=== PATIENT | male | born 1950 | race Hispanic/Latino ===

== ENCOUNTER 2017-12-23 16:11 | Emergency (ER) | payer BC, OTHER ==
[2017-12-23] MEDS ORDERED: ASPIRIN 325 MG TABLET ONE (17:03)
[2017-12-23 17:10] LABS: BASOPHILS % (AUTO) 0.9 % (0.0-5.0); EOSINOPHILS % (AUTO) 4.1 % (0.0-8.0); HEMATOCRIT 43.4 % (42-54); LYMPHOCYTES % (AUTO) 20.6 % (21.0-51.0); MEAN CORPUSCULAR HEMOGLOBIN 29.6 pg (27.0-33.0); MEAN CORPUSCULAR HGB CONC 34.7 g/dL (32.0-36.0); MEAN CORPUSCULAR VOLUME 85.4 fL (79-99); MONOCYTES % (AUTO) 5.4 % (3.0-13.0); NUCLEATED RED BLOOD CELLS 0.1 % (0.0-0.19); PLATELET COUNT (AUTO) 89 K/uL (130-400); RED BLOOD CELL COUNT(AUTO) 5.08 MIL/uL (4.50-6.20); RED CELL DISTRIBUTION WIDTH 14.4 % (11.0-15.5); WHITE BLOOD COUNT (AUTO) 10.5 K/uL (4.8-10.8)
[2017-12-23 18:07] LABS: INR 0.95 (0.85-1.15); PARTIAL THROMBOPLASTIN TIME 27.5 SEC (26.3-35.5)
[2017-12-23 18:08] LABS: CREATININE 1.6 mg/dL (0.5-1.5); POTASSIUM 4.5 mmol/L (3.5-5.1)
[2017-12-23] MEDS ORDERED: ONDANSETRON HCL MDV 20ML 2 MG/ML VIAL ONE (18:17)
[2017-12-23] MEDS ORDERED: MECLIZINE HCL 25 MG TABLET ONE (18:17)
[2017-12-23 18:21] LABS: ALBUMIN 3.8 g/dL (3.5-5.0); BILIRUBIN,TOTAL 0.3 mg/dL (0.2-1.0); CREATINE KINASE MB 3.2 ng/mL (0.5-3.6); TOTAL PROTEIN, SERUM 7.8 g/dL (6.0-8.3)
[2017-12-23] MEDS ORDERED: ONDANSETRON ODT 4 MG TAB ONE (18:22)
== END 2017-12-23 18:29 | disposition home or self-care (01) ==
LOC: EDH 16:11
DX: H81.399 Other peripheral vertigo, unspecified ear (principal); R11.0 Nausea; Z72.0 Tobacco use
CPT/HCPCS: 36415; 71045; 80053; 82550; 82553; 83874; 83880; 84484; 85025; 85610; 85730; 93005; 94761

== ENCOUNTER 2021-11-30 01:35 | Emergency (ER) | payer OTHER ==
[~2021-11-30] VITALS: Ht 170.2 cm; Wt 93.4 kg
[2021-11-30 02:21] LABS: APPEARANCE,URINE Cloudy (CLEAR); BILIRUBIN,URINE Negative (NEGATIVE); COLOR,URINE Orange (YELLOW); GLUCOSE, URINE (UA) >=1000 mg/dL (NEGATIVE); KETONES,URINE Negative (NEGATIVE); LEUKOCYTE ESTERASE ,URINE Small (NEGATIVE); NITRATE,URINE Negative (NEGATIVE); OCCULT BLOOD,URINE Large (NEGATIVE); PH,URINE 5.5 (5.0-8.0); PROTEIN,URINE 300 mg/dL (NEGATIVE)
[2021-11-30 02:37] LABS: BACTERIA,URINE Few /HPF (None Seen); RBC,URINE >100 /HPF (0-1); WBC,URINE 0-1 /HPF (0-1)
[2021-11-30 02:38] LABS: SQUAMOUS EPITHELIAL CELL,UR 0-2 /HPF (0-2)
[2021-11-30] MEDS ORDERED: LEVO500T90 PO (02:54)
[2021-11-30] MEDS ORDERED: LEVOFLOXACIN 500 MG TABLET PO ONE (03:00)
[2021-11-30 03:02] VITALS: BP 140/81
== END 2021-11-30 03:04 | disposition home or self-care (01) ==
LOC: EDH 01:35
DX: N39.0 Urinary tract infection, site not specified (principal); I10 Essential (primary) hypertension; E11.9 Type 2 diabetes mellitus without complications; Z91.030 Bee allergy status
CPT/HCPCS: 81001

== ENCOUNTER 2022-03-18 14:21 | Emergency (ER) | payer OTHER ==
[~2022-03-18] VITALS: Ht 170.2 cm; Wt 93.0 kg
[~2022-03-18 14:21] MED LIST: LEVO500T90 PO
[2022-03-18 14:46] LABS: BASOPHILS % (AUTO) 0.4 % (0.0-5.0); EOSINOPHILS % (AUTO) 0.6 % (0.0-8.0); HEMATOCRIT 43.6 % (42-54); LYMPHOCYTES % (AUTO) 9.5 % (21.0-51.0); MEAN CORPUSCULAR HEMOGLOBIN 28.2 pg (27.0-33.0); MEAN CORPUSCULAR VOLUME 85.5 fL (79-99); NEUTROPHILS % (AUTO) 80.8 % (40.0-77.0); PLATELET COUNT (AUTO) 298 K/uL (130-400); RED CELL DISTRIBUTION WIDTH 13.3 % (11.0-15.5); WHITE BLOOD COUNT (AUTO) 14.1 K/uL (4.8-10.8)
[2022-03-18 14:58] LABS: BILIRUBIN,TOTAL 0.3 mg/dL (0.2-1.0); CREATININE 1.9 mg/dL (0.5-1.5); TOTAL PROTEIN, SERUM 7.5 g/dL (6.0-8.3)
[2022-03-18] MEDS ORDERED: DEXTROSE 50%-WATER 50 ML DISP.SYRIN IV ONE (15:06)
[2022-03-18 17:04] VITALS: BP 141/95
[2022-03-18 18:05] LABS: INR 0.93 (0.85-1.15); PROTHROMBIN TIME 10.2 SEC (9.6-11.6)
[2022-03-18 18:06] LABS: PARTIAL THROMBOPLASTIN TIME 30.5 SEC (26.3-35.5)
== END 2022-03-18 17:48 | disposition home or self-care (01) ==
LOC: EDH 14:21
DX: R18.8 Other ascites (principal); E11.9 Type 2 diabetes mellitus without complications; I10 Essential (primary) hypertension; Z85.05 Personal history of malignant neoplasm of liver; Z90.49 Acquired absence of other specified parts of digestive tract; Z90.79 Acquired absence of other genital organ(s); Z91.030 Bee allergy status
CPT/HCPCS: 36415; 74176; 80053; 82948; 83690; 85025; 85610; 85730; 96374; 99284; J7070

== ENCOUNTER 2022-04-02 08:22 | Emergency (ER) | payer OTHER ==
[~2022-04-02] VITALS: Ht 170.2 cm; Wt 90.3 kg
[2022-04-02 08:45] LABS: BASOPHILS % (AUTO) 0.5 % (0.0-5.0); EOSINOPHILS % (AUTO) 0.5 % (0.0-8.0); HEMATOCRIT 44.5 % (42-54); LYMPHOCYTES % (AUTO) 9.1 % (21.0-51.0); MEAN CORPUSCULAR HEMOGLOBIN 27.4 pg (27.0-33.0); MEAN CORPUSCULAR HGB CONC 32.8 g/dL (32.0-36.0); MEAN CORPUSCULAR VOLUME 83.6 fL (79-99); MONOCYTES % (AUTO) 8.1 % (3.0-13.0); NEUTROPHILS % (AUTO) 80.6 % (40.0-77.0); PLATELET COUNT (AUTO) 361 K/uL (130-400); RED BLOOD CELL COUNT(AUTO) 5.32 MIL/uL (4.50-6.20); RED CELL DISTRIBUTION WIDTH 13.5 % (11.0-15.5); WHITE BLOOD COUNT (AUTO) 16.8 K/uL (4.8-10.8)
[2022-04-02 08:54] LABS: POTASSIUM 5.5 mmol/L (3.5-5.1)
[2022-04-02 08:55] LABS: CREATININE 2.3 mg/dL (0.5-1.5)
[2022-04-02 08:59] LABS: ALBUMIN 2.5 g/dL (3.5-5.0); BILIRUBIN,TOTAL 0.8 mg/dL (0.2-1.0); PROTHROMBIN TIME 10.9 SEC (9.6-11.6); TOTAL PROTEIN, SERUM 7.3 g/dL (6.0-8.3)
[2022-04-02] MEDS ORDERED: LEVOFLOXACIN 500 MG/D5W 100 ML 100 ML IV SCH (09:30)
[2022-04-02] MEDS ORDERED: ALBUMIN (HUMAN) 25% 100 ML IV STA (10:19)
[2022-04-02] MEDS ORDERED: PANTOPRAZOLE 40 MG/VIAL ONE (10:28)
[2022-04-02] MEDS ORDERED: PANTOPRAZOLE 40 MG/VIAL IVP ONE (10:30)
[2022-04-02] MEDS ORDERED: LEVO750T46 PO (11:09)
[2022-04-02 12:01] VITALS: BP 119/63
[2022-04-02 12:36] LABS: APPEARANCE,URINE CLEAR (CLEAR); BILIRUBIN,URINE NEGATIVE (NEGATIVE); COLOR,URINE YELLOW (YELLOW); GLUCOSE, URINE (UA) 250 mg/dL (NEGATIVE); KETONES,URINE 5 mg/dL (NEGATIVE); LEUKOCYTE ESTERASE ,URINE TRACE (NEGATIVE); NITRATE,URINE NEGATIVE (NEGATIVE); OCCULT BLOOD,URINE NEGATIVE (NEGATIVE); PROTEIN,URINE 100 mg/dL (NEGATIVE); UROBILINOGEN,URINE 0.2 mg/dL (0.2-1.0)
[2022-04-02 13:03] LABS: BACTERIA,URINE Rare /HPF (None Seen); RBC,URINE 0-1 /HPF (0-1); SQUAMOUS EPITHELIAL CELL,UR Rare /HPF (0-2)
[2022-04-02 13:18] LABS: SPECIMENTYPE,BODY FLUID PLEURAL
[2022-04-02 13:19] LABS: APPEARANCE BODY FLUID CLOUDY (CLEAR); BODY FLUID RBC 3525 /cu. mm.; BODY FLUID WBC 234 /cu. mm.; COLOR,BODY FLUID DARK YELLOW (LT YELLOW)
[2022-04-02 13:20] LABS: TOTAL VOLUME,BODY FLUID 5000 mL
[2022-04-02 13:57] LABS: BF LYMPHOCYTE 74 %; BF MESOTHELIAL 14 %; BF MONOCYTE 5 %
== END 2022-04-02 12:01 | disposition home or self-care (01) ==
LOC: EDH 08:22
DX: R18.8 Other ascites (principal); E11.9 Type 2 diabetes mellitus without complications; I10 Essential (primary) hypertension; Z85.05 Personal history of malignant neoplasm of liver; Z91.030 Bee allergy status
CPT/HCPCS: 36415; 49083; 76705; 80053; 81001; 85025; 85610; 87071; 87205; 89051; 96365; 96367; 96375; 99285; C1729; C9113; J1956; P9046

== ENCOUNTER 2022-04-21 09:14 | Inpatient (IN) | payer OTHER ==
[~2022-04-21] VITALS: Ht 170.2 cm; Wt 65.1 kg
[~2022-04-21 09:14] MED LIST changes: +LEVO-70 PO; -LEVO500T90 PO; +LEVO750T68 PO
[2022-04-21 09:48] LABS: BASOPHILS % (AUTO) 0.3 % (0.0-5.0); EOSINOPHILS % (AUTO) 0.1 % (0.0-8.0); HEMATOCRIT 44.5 % (42-54); LYMPHOCYTES % (AUTO) 5.8 % (21.0-51.0); MEAN CORPUSCULAR HEMOGLOBIN 27.4 pg (27.0-33.0); MEAN CORPUSCULAR HGB CONC 33.3 g/dL (32.0-36.0); MEAN CORPUSCULAR VOLUME 82.3 fL (79-99); MONOCYTES % (AUTO) 4.7 % (3.0-13.0); NEUTROPHILS % (AUTO) 87.9 % (40.0-77.0); PLATELET COUNT (AUTO) 351 K/uL (130-400); RED BLOOD CELL COUNT(AUTO) 5.41 MIL/uL (4.50-6.20); RED CELL DISTRIBUTION WIDTH 14.5 % (11.0-15.5); WHITE BLOOD COUNT (AUTO) 16.5 K/uL (4.8-10.8)
[2022-04-21] MEDS ORDERED: FAMOTIDINE 20MG VIAL IV ONE (10:00)
[2022-04-21] MEDS ORDERED: 0.9%NACL 1000ML 1,000 ML IV SCH (10:00)
[2022-04-21] MEDS ORDERED: ONDANSETRON 4MG INJ IVP ONE (10:00)
[2022-04-21 10:07] LABS: CARBON DIOXIDE 24 mmol/L (21-32); CHLORIDE 95 mmol/L (101-111); CREATININE 3.4 mg/dL (0.5-1.5); GLOMERULAR FILTR. RATE CALC 19 mL/min (>60); GLUCOSE,RANDOM 196 mg/dL (70-105); POTASSIUM 5.3 mmol/L (3.5-5.1); SODIUM SERUM 133 mmol/L (136-145)
[2022-04-21 10:11] LABS: ALANINE AMINOTRANSFERASE 25 U/L (12-78); ALBUMIN 2.6 g/dL (3.5-5.0); ASPARTATE AMINOTRANSFERASE 31 U/L (10-37); LIPASE 297 U/L (114-286); TOTAL PROTEIN, SERUM 7.5 g/dL (6.0-8.3)
[2022-04-21 10:14] LABS: UREA NITROGEN, BLOOD 115 mg/dL (7-18)
[2022-04-21 12:36] LABS: APPEARANCE,URINE CLEAR (CLEAR); BILIRUBIN,URINE SMALL (NEGATIVE); COLOR,URINE YELLOW (YELLOW); GLUCOSE, URINE (UA) 100 mg/dL (NEGATIVE); KETONES,URINE NEGATIVE (NEGATIVE); LEUKOCYTE ESTERASE ,URINE NEGATIVE (NEGATIVE); NITRATE,URINE NEGATIVE (NEGATIVE); OCCULT BLOOD,URINE NEGATIVE (NEGATIVE); PROTEIN,URINE 30 mg/dL (NEGATIVE); UROBILINOGEN,URINE 0.2 mg/dL (0.2-1.0)
[2022-04-21 12:46] LABS: BACTERIA,URINE Rare /HPF (None Seen); HYALINE CASTS, URINE 0-1 /LPF (0-1 /LPF); MUCUS,URINE Few LPF (None Seen); RBC,URINE 0-1 /HPF (0-1); SQUAMOUS EPITHELIAL CELL,UR Few /HPF (0-2)
[2022-04-21] MEDS ORDERED: ZOSYN 3.375GM+NS 50ML 50 ML IV SCH (13:00)
[2022-04-21] MEDS ORDERED: PHARMACY COMMUNICATION MISC SCH (13:00)
[2022-04-21] MEDS: 0.9%NACL 1000ML 1,000 ML IV SCH ×2 (13:48→21:00)
[2022-04-21 14:15] LABS: HEMOGLOBIN A1C 6.5 % (4.0-6.0)
[2022-04-21] MEDS ORDERED: ATOR20TA65 PO (15:12)
[2022-04-21] MEDS ORDERED: AMLO-257 PO (15:12)
[2022-04-21] MEDS ORDERED: SPIR25TA6 PO (15:12)
[2022-04-21] MEDS ORDERED: GLIP10TA9 PO (15:12)
[2022-04-21] MEDS ORDERED: EMPA25TA PO (15:12)
[2022-04-21] MEDS: ALBUMIN (HUMAN) 25% 50 ML IV SCH (16:38)
[2022-04-21 18:58] LABS: CREATININE,URINE RANDOM 169 mg/dL (30-135); SODIUM,URINE RANDOM < 14 mmol/l (40-220)
[2022-04-21] MEDS: ZOSYN 3.375GM+NS 50ML 50 ML IV SCH (21:00)
[2022-04-21 23:25] VITALS: BP 106/70
[2022-04-22 03:12] VITALS: BP 117/79
[2022-04-22] MEDS: 0.9%NACL 1000ML 1,000 ML IV SCH (03:51)
[2022-04-22 04:11] LABS: BASOPHILS % (AUTO) 0.3 % (0.0-5.0); LYMPHOCYTES % (AUTO) 10.3 % (21.0-51.0); MEAN CORPUSCULAR HGB CONC 32.8 g/dL (32.0-36.0); MEAN CORPUSCULAR VOLUME 82.5 fL (79-99); MONOCYTES % (AUTO) 7.1 % (3.0-13.0); NEUTROPHILS % (AUTO) 80.2 % (40.0-77.0); PLATELET COUNT (AUTO) 255 K/uL (130-400); RED BLOOD CELL COUNT(AUTO) 4.85 MIL/uL (4.50-6.20); RED CELL DISTRIBUTION WIDTH 14.4 % (11.0-15.5); WHITE BLOOD COUNT (AUTO) 9.4 K/uL (4.8-10.8)
[2022-04-22 04:44] LABS: ALBUMIN 2.4 g/dL (3.5-5.0); CREATININE 2.8 mg/dL (0.5-1.5); MAGNESIUM 2.8 mg/dL (1.80-2.40); POTASSIUM 4.8 mmol/L (3.5-5.1); TOTAL PROTEIN, SERUM 6.6 g/dL (6.0-8.3); URIC ACID 13.9 mg/dL (2.6-7.2)
[2022-04-22] MEDS: ONDANSETRON 4MG INJ IVP PRN (07:49)
[2022-04-22 08:00] VITALS: BP 117/73
[2022-04-22] MEDS: ZOSYN 3.375GM+NS 50ML 50 ML IV SCH ×2 (08:57→20:06)
[2022-04-22] MEDS: THIAMINE HCL 100 MG/ML 2ML VIAL IVP SCH (08:58)
[2022-04-22] MEDS: Vitamin B Complex/Vit C/Folic Acid PO SCH (08:58)
[2022-04-22] MEDS: ALBUMIN (HUMAN) 25% 50 ML IV SCH ×4 (08:59→23:40)
[2022-04-22 12:00] VITALS: BP 122/72
[2022-04-22 12:59] LABS: INR 0.98 (0.85-1.15); PROTHROMBIN TIME 10.7 SEC (9.6-11.6)
[2022-04-22 13:00] LABS: PARTIAL THROMBOPLASTIN TIME 28.3 SEC (26.3-35.5)
[2022-04-22 16:00] VITALS: BP 121/68
[2022-04-22] MEDS ORDERED: LIDOCAINE HCL 1% 10 ML VIAL ONE (16:26)
[2022-04-22 16:39] LABS: APPEARANCE BODY FLUID SLIGHTLY CLOUDY (CLEAR); COLOR,BODY FLUID DARK YELLOW (LT YELLOW); SPECIMENTYPE,BODY FLUID ASCITES
[2022-04-22 16:41] LABS: TOTAL VOLUME,BODY FLUID 1700 mL
[2022-04-22 16:42] LABS: BODY FLUID RBC 3300 /cu. mm.; BODY FLUID WBC 88 /cu. mm.
[2022-04-22 17:06] LABS: BF LYMPHOCYTE 77 %; BF MESOTHELIAL 6 %; BF MONOCYTE 5 %
[2022-04-22 19:15] VITALS: BP 114/67
[2022-04-22] MEDS: PANTOPRAZOLE 40 MG TAB DR PO SCH (20:06)
[2022-04-22] MEDS ORDERED: 0.9%NACL 1000ML 1,000 ML IV ONE (23:30)
[2022-04-23 00:15] VITALS: BP 107/69
[2022-04-23 03:15] VITALS: BP 116/66
[2022-04-23 04:20] LABS: HEMATOCRIT 39.9 % (42-54); MEAN CORPUSCULAR HEMOGLOBIN 26.9 pg (27.0-33.0); MEAN CORPUSCULAR HGB CONC 32.6 g/dL (32.0-36.0); MEAN CORPUSCULAR VOLUME 82.4 fL (79-99); RED BLOOD CELL COUNT(AUTO) 4.84 MIL/uL (4.50-6.20); RED CELL DISTRIBUTION WIDTH 14.4 % (11.0-15.5); WHITE BLOOD COUNT (AUTO) 9.3 K/uL (4.8-10.8)
[2022-04-23 04:21] LABS: CREATININE 2.7 mg/dL (0.5-1.5); POTASSIUM 3.9 mmol/L (3.5-5.1)
[2022-04-23 08:00] VITALS: BP 124/73
[2022-04-23] MEDS: Vitamin B Complex/Vit C/Folic Acid PO SCH (09:45)
[2022-04-23] MEDS: ZOSYN 3.375GM+NS 50ML 50 ML IV SCH ×2 (09:45→20:54)
[2022-04-23] MEDS: THIAMINE HCL 100 MG/ML 2ML VIAL IVP SCH (09:45)
[2022-04-23] MEDS: ALBUMIN (HUMAN) 25% 50 ML IV SCH ×2 (09:45→16:22)
[2022-04-23] MEDS: PANTOPRAZOLE 40 MG TAB DR PO SCH ×2 (09:45→20:54)
[2022-04-23 12:00] VITALS: BP 108/64
[2022-04-23 16:04] VITALS: BP 116/77
[2022-04-23] MEDS: ONDANSETRON 4MG INJ IVP PRN (16:23)
[2022-04-23 20:00] VITALS: BP 134/77
[2022-04-24] VITALS: BP 132/82
[2022-04-24] MEDS: ALBUMIN (HUMAN) 25% 50 ML IV SCH ×3 (00:11→16:20)
[2022-04-24 04:00] VITALS: BP 136/83
[2022-04-24 06:48] LABS: BASOPHILS % (AUTO) 0.2 % (0.0-5.0); EOSINOPHILS % (AUTO) 1.5 % (0.0-8.0); HEMATOCRIT 38.9 % (42-54); LYMPHOCYTES % (AUTO) 10.6 % (21.0-51.0); MEAN CORPUSCULAR HEMOGLOBIN 27.3 pg (27.0-33.0); MEAN CORPUSCULAR HGB CONC 32.9 g/dL (32.0-36.0); MEAN CORPUSCULAR VOLUME 82.9 fL (79-99); MONOCYTES % (AUTO) 7.4 % (3.0-13.0); NEUTROPHILS % (AUTO) 79.2 % (40.0-77.0); PLATELET COUNT (AUTO) 228 K/uL (130-400); RED BLOOD CELL COUNT(AUTO) 4.69 MIL/uL (4.50-6.20); RED CELL DISTRIBUTION WIDTH 14.3 % (11.0-15.5); WHITE BLOOD COUNT (AUTO) 9.3 K/uL (4.8-10.8)
[2022-04-24 06:59] LABS: CREATININE 2.4 mg/dL (0.5-1.5); POTASSIUM 3.9 mmol/L (3.5-5.1)
[2022-04-24 08:09] VITALS: BP 122/83
[2022-04-24] MEDS: ZOSYN 3.375GM+NS 50ML 50 ML IV SCH (08:17)
[2022-04-24] MEDS: Vitamin B Complex/Vit C/Folic Acid PO SCH (08:17)
[2022-04-24] MEDS: PANTOPRAZOLE 40 MG TAB DR PO SCH ×2 (08:18→20:10)
[2022-04-24] MEDS: ONDANSETRON 4MG INJ IVP PRN ×2 (08:18→16:20)
[2022-04-24] MEDS: THIAMINE HCL 100 MG/ML 2ML VIAL IVP SCH (08:18)
[2022-04-24] MEDS ORDERED: ENOXAPARIN SODIUM 40 MG/0.4 ML SYRINGE SQ SCH (09:00)
[2022-04-24] MEDS ORDERED: GLYCERIN ADULT SUPP.RECT RC SCH (10:30)
[2022-04-24] MEDS: HEPARIN 5,000 UNIT VIAL SQ SCH ×2 (11:36→20:13)
[2022-04-24 12:00] VITALS: BP 106/74
[2022-04-24 16:00] VITALS: BP 104/90
[2022-04-24 20:00] VITALS: BP 111/68
[2022-04-24] MEDS: PROMETHAZINE HCL 25 MG/ML 1ML AMPULE IM PRN (20:10)
[2022-04-25] VITALS (7 sets, daily range): BP systolic 106–127; BP diastolic 64–84
[2022-04-25] MEDS: ALBUMIN (HUMAN) 25% 50 ML IV SCH ×3 (01:11→15:20)
[2022-04-25] MEDS: PROMETHAZINE HCL 25 MG/ML 1ML AMPULE IM PRN ×2 (03:25→19:51)
[2022-04-25 03:59] LABS: HEMATOCRIT 40.2 % (42-54); MEAN CORPUSCULAR HEMOGLOBIN 27.1 pg (27.0-33.0); MEAN CORPUSCULAR HGB CONC 32.6 g/dL (32.0-36.0); MEAN CORPUSCULAR VOLUME 83.1 fL (79-99); RED BLOOD CELL COUNT(AUTO) 4.84 MIL/uL (4.50-6.20); RED CELL DISTRIBUTION WIDTH 14.2 % (11.0-15.5); WHITE BLOOD COUNT (AUTO) 10.2 K/uL (4.8-10.8)
[2022-04-25 04:11] LABS: CREATININE 2.5 mg/dL (0.5-1.5); POTASSIUM 3.7 mmol/L (3.5-5.1)
[2022-04-25] MEDS: THIAMINE HCL 100 MG/ML 2ML VIAL IVP SCH (09:02)
[2022-04-25] MEDS: Vitamin B Complex/Vit C/Folic Acid PO SCH (09:02)
[2022-04-25] MEDS: PANTOPRAZOLE 40 MG TAB DR PO SCH ×2 (09:03→19:51)
[2022-04-25] MEDS: HEPARIN 5,000 UNIT VIAL SQ SCH ×2 (10:38→22:10)
[2022-04-25] MEDS ORDERED: LACTULOSE 20 GM/30 ML UDCUP PO PRN ×2 (16:30→17:00)
[2022-04-25] MEDS: ONDANSETRON 4MG INJ IVP PRN (22:10)
[2022-04-26 00:09] VITALS: BP 104/67
[2022-04-26] MEDS: ALBUMIN (HUMAN) 25% 50 ML IV SCH (00:57)
[2022-04-26 03:09] VITALS: BP 109/63
[2022-04-26] MEDS: PROMETHAZINE HCL 25 MG/ML 1ML AMPULE IM PRN (03:18)
[2022-04-26 04:00] LABS: HEMATOCRIT 41.6 % (42-54); MEAN CORPUSCULAR HGB CONC 32.7 g/dL (32.0-36.0); MEAN CORPUSCULAR VOLUME 82.7 fL (79-99); RED BLOOD CELL COUNT(AUTO) 5.03 MIL/uL (4.50-6.20); RED CELL DISTRIBUTION WIDTH 14.4 % (11.0-15.5); WHITE BLOOD COUNT (AUTO) 12.4 K/uL (4.8-10.8)
[2022-04-26 04:09] LABS: CREATININE 3.2 mg/dL (0.5-1.5)
[2022-04-26] MEDS ORDERED: METOPROLOL TARTRATE 1 MG/ML 5ML VIAL IV ONE (04:11)
[2022-04-26 08:00] VITALS: BP 102/64
[2022-04-26] MEDS: PANTOPRAZOLE 40 MG TAB DR PO SCH (09:00)
[2022-04-26] MEDS: Vitamin B Complex/Vit C/Folic Acid PO SCH (09:00)
[2022-04-26] MEDS: THIAMINE HCL 100 MG/ML 2ML VIAL IVP SCH (09:42)
[2022-04-26] MEDS: HEPARIN 5,000 UNIT VIAL SQ SCH ×2 (09:43→20:51)
[2022-04-26 11:54] VITALS: BP 102/69
[2022-04-26 16:00] VITALS: BP 95/67
[2022-04-26 19:15] VITALS: BP 107/68
[2022-04-26] MEDS: ONDANSETRON 4MG INJ IVP PRN (20:50)
[2022-04-26] MEDS: PANTOPRAZOLE 40 MG/VIAL IVP SCH (20:50)
[2022-04-27 00:15] VITALS: BP 91/61
[2022-04-27] MEDS: 0.9%NACL 1000ML 1,000 ML IV SCH ×2 (02:50→13:54)
[2022-04-27 04:00] VITALS: BP 109/66
[2022-04-27 04:28] LABS: HEMATOCRIT 39.1 % (42-54); MEAN CORPUSCULAR HEMOGLOBIN 26.6 pg (27.0-33.0); MEAN CORPUSCULAR HGB CONC 31.7 g/dL (32.0-36.0); MEAN CORPUSCULAR VOLUME 83.7 fL (79-99); RED BLOOD CELL COUNT(AUTO) 4.67 MIL/uL (4.50-6.20); RED CELL DISTRIBUTION WIDTH 14.6 % (11.0-15.5); WHITE BLOOD COUNT (AUTO) 11.2 K/uL (4.8-10.8)
[2022-04-27 04:37] LABS: CREATININE 5.2 mg/dL (0.5-1.5); POTASSIUM 3.9 mmol/L (3.5-5.1)
[2022-04-27 07:49] VITALS: BP_SYST 101; BP_SYST 137; BP_DIAS 61; BP_DIAS 74
[2022-04-27] MEDS: ONDANSETRON 4MG INJ IVP PRN ×2 (08:23→15:11)
[2022-04-27] MEDS: THIAMINE HCL 100 MG/ML 2ML VIAL IVP SCH (08:23)
[2022-04-27] MEDS: PANTOPRAZOLE 40 MG/VIAL IVP SCH ×2 (08:23→23:13)
[2022-04-27] MEDS: Vitamin B Complex/Vit C/Folic Acid PO SCH (08:23)
[2022-04-27 11:31] VITALS: BP 109/62
[2022-04-27] MEDS: HEPARIN 5,000 UNIT VIAL SQ SCH ×2 (11:38→23:16)
[2022-04-27] MEDS ORDERED: 0.9% NACL 500ML IV.SOLN 500 ML IV SCH (13:00)
[2022-04-27] MEDS ORDERED: PHARMACY COMMUNICATION MISC SCH (13:00)
[2022-04-27] MEDS: ALBUMIN (HUMAN) 25% 100 ML IV SCH ×2 (13:54→23:14)
[2022-04-27 14:33] LABS: APPEARANCE,URINE CLOUDY (CLEAR); BILIRUBIN,URINE SMALL (NEGATIVE); COLOR,URINE BROWN (YELLOW); GLUCOSE, URINE (UA) NEGATIVE (NEGATIVE); KETONES,URINE NEGATIVE (NEGATIVE); LEUKOCYTE ESTERASE ,URINE NEGATIVE (NEGATIVE); NITRATE,URINE NEGATIVE (NEGATIVE); OCCULT BLOOD,URINE LARGE (NEGATIVE); PROTEIN,URINE 30 mg/dL (NEGATIVE); UROBILINOGEN,URINE 0.2 mg/dL (0.2-1.0)
[2022-04-27 15:02] LABS: BACTERIA,URINE Few /HPF (None Seen); MUCUS,URINE Few LPF (None Seen); RBC,URINE 51-100 /HPF (0-1); SQUAMOUS EPITHELIAL CELL,UR Few /HPF (0-2); YEAST,URINE BUDDING Moderate /HPF (None Seen)
[2022-04-27 16:10] VITALS: BP 119/83
[2022-04-27 19:15] VITALS: BP 113/68
[2022-04-28] VITALS (7 sets, daily range): BP systolic 108–121; BP diastolic 57–73
[2022-04-28 04:30] LABS: BASOPHILS % (AUTO) 0.4 % (0.0-5.0); EOSINOPHILS % (AUTO) 0.4 % (0.0-8.0); HEMATOCRIT 34.1 % (42-54); LYMPHOCYTES % (AUTO) 7.2 % (21.0-51.0); MEAN CORPUSCULAR HEMOGLOBIN 26.8 pg (27.0-33.0); MEAN CORPUSCULAR VOLUME 83.8 fL (79-99); MONOCYTES % (AUTO) 7.9 % (3.0-13.0); NEUTROPHILS % (AUTO) 83.2 % (40.0-77.0); PLATELET COUNT (AUTO) 203 K/uL (130-400); RED BLOOD CELL COUNT(AUTO) 4.07 MIL/uL (4.50-6.20); RED CELL DISTRIBUTION WIDTH 14.4 % (11.0-15.5); WHITE BLOOD COUNT (AUTO) 9.9 K/uL (4.8-10.8)
[2022-04-28 04:50] LABS: ALBUMIN 3.2 g/dL (3.5-5.0); CREATININE 4.5 mg/dL (0.5-1.5); MAGNESIUM 2.8 mg/dL (1.80-2.40); PHOSPHORUS 4.3 mg/dL (2.5-4.9); POTASSIUM 3.2 mmol/L (3.5-5.1); TOTAL PROTEIN, SERUM 6.8 g/dL (6.0-8.3)
[2022-04-28] MEDS: 0.9%NACL 1000ML 1,000 ML IV SCH ×2 (05:18→17:04)
[2022-04-28] MEDS: ALBUMIN (HUMAN) 25% 100 ML IV SCH ×3 (05:18→22:33)
[2022-04-28] MEDS: THIAMINE HCL 100 MG/ML 2ML VIAL IVP SCH (08:07)
[2022-04-28] MEDS: PANTOPRAZOLE 40 MG/VIAL IVP SCH ×2 (08:07→22:24)
[2022-04-28] MEDS: Vitamin B Complex/Vit C/Folic Acid PO SCH (08:08)
[2022-04-28] MEDS: HEPARIN 5,000 UNIT VIAL SQ SCH ×2 (10:41→22:40)
[2022-04-28] MEDS ORDERED: DIATR MEGLU/DIATRIZOATE SODIUM 30 ML BOTTLE ONE (10:57)
[2022-04-29] VITALS: BP 111/51
[2022-04-29 04:00] VITALS: BP 118/67
[2022-04-29 05:06] LABS: HEMATOCRIT 33.3 % (42-54); MEAN CORPUSCULAR HGB CONC 32.1 g/dL (32.0-36.0); MEAN CORPUSCULAR VOLUME 84.1 fL (79-99); RED BLOOD CELL COUNT(AUTO) 3.96 MIL/uL (4.50-6.20); RED CELL DISTRIBUTION WIDTH 14.4 % (11.0-15.5); WHITE BLOOD COUNT (AUTO) 12.2 K/uL (4.8-10.8)
[2022-04-29 05:19] LABS: PROTHROMBIN TIME 10.9 SEC (9.6-11.6)
[2022-04-29 05:20] LABS: PARTIAL THROMBOPLASTIN TIME 32.5 SEC (26.3-35.5)
[2022-04-29 05:25] LABS: ALBUMIN 3.4 g/dL (3.5-5.0); CREATININE 3.7 mg/dL (0.5-1.5); MAGNESIUM 2.6 mg/dL (1.80-2.40); PHOSPHORUS 3.7 mg/dL (2.5-4.9); TOTAL PROTEIN, SERUM 6.8 g/dL (6.0-8.3)
[2022-04-29] MEDS: ALBUMIN (HUMAN) 25% 100 ML IV SCH (05:26)
[2022-04-29 05:54] LABS: POTASSIUM 2.9 mmol/L (3.5-5.1)
[2022-04-29 08:00] VITALS: BP 126/61
[2022-04-29] MEDS: 0.9%NACL 1000ML 1,000 ML IV SCH ×2 (10:34→13:10)
[2022-04-29] MEDS: Vitamin B Complex/Vit C/Folic Acid PO SCH (10:34)
[2022-04-29] MEDS: THIAMINE HCL 100 MG/ML 2ML VIAL IVP SCH (10:34)
[2022-04-29] MEDS: HEPARIN 5,000 UNIT VIAL SQ SCH ×2 (10:35→21:49)
[2022-04-29] MEDS: PANTOPRAZOLE 40 MG/VIAL IVP SCH ×2 (10:36→21:44)
[2022-04-29 12:00] VITALS: BP 122/69
[2022-04-29] MEDS: POTASSIUM CHLORIDE 20MEQ/10ML 20 MEQ in DEXTROSE 5 %-0.45 % NACL 1,000 ML IV SCH (13:43)
[2022-04-29 16:00] VITALS: BP 121/64
[2022-04-29 18:10] LABS: CREATININE 3.2 mg/dL (0.5-1.5); POTASSIUM 3.2 mmol/L (3.5-5.1)
[2022-04-29 20:00] VITALS: BP 108/62
[2022-04-29] MEDS: ONDANSETRON 4MG INJ IVP PRN (21:44)
[2022-04-30] VITALS (28 sets, daily range): BP systolic 107–129; BP diastolic 60–77
[2022-04-30 06:17] LABS: BASOPHILS % (AUTO) 0.4 % (0.0-5.0); EOSINOPHILS % (AUTO) 0.1 % (0.0-8.0); HEMATOCRIT 34.7 % (42-54); LYMPHOCYTES % (AUTO) 7.4 % (21.0-51.0); MEAN CORPUSCULAR HEMOGLOBIN 27.3 pg (27.0-33.0); MEAN CORPUSCULAR VOLUME 85.3 fL (79-99); MONOCYTES % (AUTO) 7.4 % (3.0-13.0); NEUTROPHILS % (AUTO) 82.5 % (40.0-77.0); PLATELET COUNT (AUTO) 206 K/uL (130-400); RED BLOOD CELL COUNT(AUTO) 4.07 MIL/uL (4.50-6.20); RED CELL DISTRIBUTION WIDTH 14.6 % (11.0-15.5); WHITE BLOOD COUNT (AUTO) 13.1 K/uL (4.8-10.8)
[2022-04-30 06:36] LABS: ALBUMIN 3.3 g/dL (3.5-5.0); MAGNESIUM 2.4 mg/dL (1.80-2.40); PHOSPHORUS 3.2 mg/dL (2.5-4.9)
[2022-04-30 06:44] LABS: POTASSIUM 2.9 mmol/L (3.5-5.1)
[2022-04-30] MEDS: Vitamin B Complex/Vit C/Folic Acid PO SCH (09:00)
[2022-04-30] MEDS: PANTOPRAZOLE 40 MG/VIAL IVP SCH ×2 (10:03→20:57)
[2022-04-30] MEDS: THIAMINE HCL 100 MG/ML 2ML VIAL IVP SCH (10:03)
[2022-04-30] MEDS: HEPARIN 5,000 UNIT VIAL SQ SCH ×2 (10:30→22:30)
[2022-04-30] MEDS: 0.9%NACL 1000ML 1,000 ML IV SCH (10:50)
[2022-04-30] MEDS ORDERED: CEFAZOLIN SODIUM 1 GM VIAL ONE (13:27)
[2022-04-30] MEDS ORDERED: CEFAZOLIN SODIUM 1 GM VIAL IVP SCH (14:00)
[2022-04-30] MEDS ORDERED: DEXAMETHASONE SOD PHOSPHATE 10MG/ML 1ML VIAL ONE (14:22)
[2022-04-30] MEDS ORDERED: SUCCINYLCHOLINE 200MG/10ML SYR ONE (14:22)
[2022-04-30] MEDS ORDERED: LIDOCAINE PF 100MG/5ML (2%) SYRINGE 5ML ONE (14:22)
[2022-04-30] MEDS ORDERED: GLYCOPYRROLATE 1 MG/5 ML SYRINGE ONE (14:23)
[2022-04-30] MEDS ORDERED: PROPOFOL 10 MG/ML 20ML VIAL IV ONE (14:23)
[2022-04-30] MEDS ORDERED: ROCURONIUM 10MG/1ML SYR 10 MG/ML ML ONE (14:23)
[2022-04-30] MEDS ORDERED: NEOSTIGMINE 5MG/5ML SYR IV ONE (14:23)
[2022-04-30] MEDS ORDERED: MIDAZOLAM HCL 1 MG/ML 2ML VIAL ONE (14:23)
[2022-04-30 14:30] LABS: CREATININE 2.9 mg/dL (0.5-1.5); POTASSIUM 3.1 mmol/L (3.5-5.1)
[2022-04-30] MEDS ORDERED: FENTANYL CITRATE PF 50 MCG/1 ML 2ML VIAL ONE (14:34)
[2022-04-30] MEDS ORDERED: PHENYLEPHRINE HCL 10 MG/ML 1ML VIAL IV ONE (14:35)
[2022-04-30] MEDS ORDERED: CEFAZOLIN SODIUM 2 GM VIAL IV ONE (15:00)
[2022-04-30] MEDS ORDERED: BUPIVACAINE/PF 0.5% 30ML VIAL ONE (15:06)
[2022-04-30] MEDS ORDERED: ESMOLOL HCL 10 MG/ML 10 ML VIAL ONE (15:32)
[2022-04-30] MEDS ORDERED: SUGAMMADEX SODIUM 200 MG/2 ML VIAL IV ONE (15:34)
[2022-04-30 17:02] LABS: HEMATOCRIT 25.3 % (42-54); MEAN CORPUSCULAR HEMOGLOBIN 27.6 pg (27.0-33.0); MEAN CORPUSCULAR HGB CONC 31.2 g/dL (32.0-36.0); MEAN CORPUSCULAR VOLUME 88.5 fL (79-99); PLATELET COUNT (AUTO) 142 K/uL (130-400); RED BLOOD CELL COUNT(AUTO) 2.86 MIL/uL (4.50-6.20); RED CELL DISTRIBUTION WIDTH 14.8 % (11.0-15.5); WHITE BLOOD COUNT (AUTO) 9.7 K/uL (4.8-10.8)
[2022-04-30] MEDS: POTASSIUM CHLORIDE 20MEQ/10ML 20 MEQ in DEXTROSE 5 %-0.45 % NACL 1,000 ML IV SCH (17:06)
[2022-04-30 17:32] LABS: BAND NEUTROPHILS % (MANUAL) 25 % (0-2); LYMPHOCYTES % (MANUAL) 4 % (22-44); MONOCYTES % (MANUAL) 4 % (2-9); REACTIVE LYMPHOCYTES 1 % (0-0); SEGMENTED NEUTROPHILS % 66 % (40-70)
[2022-04-30 17:33] LABS: MAN.DIFF COMMENT-IMPRESSION MANUAL DIFFERENTIAL
[2022-05-01 04:08] VITALS: BP 123/74
[2022-05-01 05:29] LABS: BASOPHILS % (AUTO) 0.4 % (0.0-5.0); EOSINOPHILS % (AUTO) 0.1 % (0.0-8.0); HEMATOCRIT 35.4 % (42-54); MEAN CORPUSCULAR HGB CONC 31.1 g/dL (32.0-36.0); MONOCYTES % (AUTO) 7.8 % (3.0-13.0); NEUTROPHILS % (AUTO) 81.7 % (40.0-77.0); PLATELET COUNT (AUTO) 209 K/uL (130-400); RED BLOOD CELL COUNT(AUTO) 4.07 MIL/uL (4.50-6.20); WHITE BLOOD COUNT (AUTO) 10.9 K/uL (4.8-10.8)
[2022-05-01 05:42] LABS: ALBUMIN 2.8 g/dL (3.5-5.0); CREATININE 2.8 mg/dL (0.5-1.5); TOTAL PROTEIN, SERUM 6.7 g/dL (6.0-8.3)
[2022-05-01 05:47] LABS: POTASSIUM 2.7 mmol/L (3.5-5.1)
[2022-05-01 07:01] VITALS: BP 119/76
[2022-05-01] MEDS: Vitamin B Complex/Vit C/Folic Acid PO SCH (09:00)
[2022-05-01] MEDS: THIAMINE HCL 100 MG/ML 2ML VIAL IVP SCH (09:24)
[2022-05-01] MEDS: PANTOPRAZOLE 40 MG/VIAL IVP SCH ×2 (09:24→20:09)
[2022-05-01] MEDS: 0.9%NACL 1000ML 1,000 ML IV SCH ×2 (10:41→12:12)
[2022-05-01] MEDS: HEPARIN 5,000 UNIT VIAL SQ SCH ×2 (10:43→23:00)
[2022-05-01] MEDS: POTASSIUM CHLORIDE 20MEQ/10ML 20 MEQ in DEXTROSE 5%-WATER 1,000 ML IV SCH (12:10)
[2022-05-01 12:19] VITALS: BP 133/81
[2022-05-01 16:14] VITALS: BP 117/75
[2022-05-01] MEDS ORDERED: DEXTROSE 50%-WATER 50 ML DISP.SYRIN IV PRN (18:30)
[2022-05-01] MEDS ORDERED: GLUCAGON 1MG KIT 1 MG ML IM PRN (18:30)
[2022-05-01 20:00] VITALS: BP 126/77
[2022-05-01] MEDS: ONDANSETRON 4MG INJ IVP PRN (20:27)
[2022-05-01] MEDS: INSULIN HUMULIN R 100 UNIT/ML 3ML SQ SCH (23:07)
[2022-05-02 00:35] VITALS: BP 116/71
[2022-05-02] MEDS: POTASSIUM CHLORIDE 20MEQ/10ML 20 MEQ in DEXTROSE 5%-WATER 1,000 ML IV SCH ×2 (01:25→15:47)
[2022-05-02] MEDS: 0.9%NACL 1000ML 1,000 ML IV SCH (01:25)
[2022-05-02 04:00] VITALS: BP 120/71
[2022-05-02 04:35] LABS: BASOPHILS % (AUTO) 0.4 % (0.0-5.0); HEMATOCRIT 36.1 % (42-54); LYMPHOCYTES % (AUTO) 8.1 % (21.0-51.0); MEAN CORPUSCULAR HEMOGLOBIN 26.9 pg (27.0-33.0); MEAN CORPUSCULAR HGB CONC 30.7 g/dL (32.0-36.0); MEAN CORPUSCULAR VOLUME 87.4 fL (79-99); MONOCYTES % (AUTO) 7.5 % (3.0-13.0); NEUTROPHILS % (AUTO) 80.9 % (40.0-77.0); PLATELET COUNT (AUTO) 190 K/uL (130-400); RED BLOOD CELL COUNT(AUTO) 4.13 MIL/uL (4.50-6.20); WHITE BLOOD COUNT (AUTO) 10.8 K/uL (4.8-10.8)
[2022-05-02 05:03] LABS: ALBUMIN 2.5 g/dL (3.5-5.0); CREATININE 2.6 mg/dL (0.5-1.5); MAGNESIUM 2.3 mg/dL (1.80-2.40); TOTAL PROTEIN, SERUM 6.6 g/dL (6.0-8.3)
[2022-05-02 05:11] LABS: POTASSIUM 2.9 mmol/L (3.5-5.1)
[2022-05-02] MEDS: INSULIN HUMULIN R 100 UNIT/ML 3ML SQ SCH ×3 (06:19→19:06)
[2022-05-02 08:00] VITALS: BP 120/65
[2022-05-02] MEDS: Vitamin B Complex/Vit C/Folic Acid PO SCH (09:00)
[2022-05-02] MEDS: PANTOPRAZOLE 40 MG/VIAL IVP SCH ×2 (09:50→21:47)
[2022-05-02] MEDS: THIAMINE HCL 100 MG/ML 2ML VIAL IVP SCH (09:51)
[2022-05-02] MEDS: HEPARIN 5,000 UNIT VIAL SQ SCH ×2 (10:04→21:53)
[2022-05-02 12:00] VITALS: BP 122/80
[2022-05-02 16:00] VITALS: BP 110/57
[2022-05-02] MEDS: POTASSIUM CHLORIDE 20MEQ/100ML 100 ML IV PRN ×2 (16:50→21:48)
[2022-05-02] MEDS: LIDOCAINE HCL-MPF 1% 2ML VIAL IV PRN ×2 (16:50→21:49)
[2022-05-02] MEDS ORDERED: M.V.I. IV [ADULT] 10 ML, MULTITRACE-4 ADULT 10ML VIAL 3 ML in CLINIMIX-E 5%AA /D15%W 2... IV SCH (17:00)
[2022-05-02 17:15] LABS: INR 0.97 (0.85-1.15); PROTHROMBIN TIME 10.6 SEC (9.6-11.6)
[2022-05-02 20:00] VITALS: BP 121/80
[2022-05-02] MEDS: FAT EMULSIONS 20% 250ML 250 ML IV SCH (23:25)
[2022-05-03] VITALS: BP 112/67
[2022-05-03] MEDS: INSULIN HUMULIN R 100 UNIT/ML 3ML SQ SCH ×4 (00:26→18:21)
[2022-05-03] MEDS: 0.9%NACL 1000ML 1,000 ML IV SCH ×2 (02:06→18:50)
[2022-05-03 04:00] VITALS: BP 109/68
[2022-05-03 05:36] LABS: HEMATOCRIT 35.9 % (42-54); MEAN CORPUSCULAR HEMOGLOBIN 27.5 pg (27.0-33.0); MEAN CORPUSCULAR HGB CONC 31.2 g/dL (32.0-36.0); MEAN CORPUSCULAR VOLUME 88.2 fL (79-99); NUCLEATED RED BLOOD CELLS 0.1 % (0.0-0.19); PLATELET COUNT (AUTO) 214 K/uL (130-400); RED BLOOD CELL COUNT(AUTO) 4.07 MIL/uL (4.50-6.20); RED CELL DISTRIBUTION WIDTH 15.4 % (11.0-15.5); WHITE BLOOD COUNT (AUTO) 13.8 K/uL (4.8-10.8)
[2022-05-03 05:54] LABS: ALBUMIN 2.3 g/dL (3.5-5.0); CREATININE 2.6 mg/dL (0.5-1.5); MAGNESIUM 2.2 mg/dL (1.80-2.40); POTASSIUM 3.9 mmol/L (3.5-5.1)
[2022-05-03 05:58] LABS: BAND NEUTROPHILS % (MANUAL) 17 % (0-2); LYMPHOCYTES % (MANUAL) 7 % (22-44); MONOCYTES % (MANUAL) 3 % (2-9); SEGMENTED NEUTROPHILS % 73 % (40-70)
[2022-05-03 06:00] LABS: MAN.DIFF COMMENT-IMPRESSION MANUAL DIFFERENTIAL
[2022-05-03 06:11] LABS: TOTAL PROTEIN, SERUM 6.8 g/dL (6.0-8.3)
[2022-05-03 08:00] VITALS: BP 127/60
[2022-05-03] MEDS: Vitamin B Complex/Vit C/Folic Acid PO SCH (09:00)
[2022-05-03] MEDS: 0.9%NACL 10ML VIAL IV SCH ×2 (09:00→21:02)
[2022-05-03] MEDS: PANTOPRAZOLE 40 MG/VIAL IVP SCH ×2 (09:58→10:11)
[2022-05-03] MEDS: HEPARIN 5,000 UNIT VIAL SQ SCH ×2 (10:09→21:02)
[2022-05-03] MEDS: THIAMINE HCL 100 MG/ML 2ML VIAL IVP SCH (10:11)
[2022-05-03 12:00] VITALS: BP 121/72
[2022-05-03 16:00] VITALS: BP 119/54
[2022-05-03] MEDS ORDERED: [UNRECOGNIZED DRUG - NUTRITION] IV ONE (16:00)
[2022-05-03] MEDS: METOPROLOL TARTRATE 1 MG/ML 5ML VIAL IV PRN ×2 (19:36→21:01)
[2022-05-03 20:00] VITALS: BP 96/76
[2022-05-04] VITALS: BP 157/96
[2022-05-04] MEDS: INSULIN HUMULIN R 100 UNIT/ML 3ML SQ SCH ×4 (00:55→18:29)
[2022-05-04 04:00] VITALS: BP 136/66
[2022-05-04 04:35] LABS: BASOPHILS % (AUTO) 0.4 % (0.0-5.0); EOSINOPHILS % (AUTO) 0.2 % (0.0-8.0); HEMATOCRIT 33.4 % (42-54); LYMPHOCYTES % (AUTO) 8.6 % (21.0-51.0); MEAN CORPUSCULAR HEMOGLOBIN 26.8 pg (27.0-33.0); MEAN CORPUSCULAR HGB CONC 30.8 g/dL (32.0-36.0); NEUTROPHILS % (AUTO) 84.1 % (40.0-77.0); NUCLEATED RED BLOOD CELLS 0.2 % (0.0-0.19); PLATELET COUNT (AUTO) 167 K/uL (130-400); RED BLOOD CELL COUNT(AUTO) 3.84 MIL/uL (4.50-6.20); RED CELL DISTRIBUTION WIDTH 15.6 % (11.0-15.5); WHITE BLOOD COUNT (AUTO) 12.7 K/uL (4.8-10.8)
[2022-05-04 04:55] LABS: CREATININE 3.2 mg/dL (0.5-1.5); POTASSIUM 3.9 mmol/L (3.5-5.1)
[2022-05-04 08:00] VITALS: BP 137/42
[2022-05-04] MEDS: Vitamin B Complex/Vit C/Folic Acid PO SCH (09:00)
[2022-05-04] MEDS: THIAMINE HCL 100 MG/ML 2ML VIAL IVP SCH (09:00)
[2022-05-04] MEDS: 0.9%NACL 10ML VIAL IV SCH ×2 (09:07→19:56)
[2022-05-04] MEDS: HEPARIN 5,000 UNIT VIAL SQ SCH ×2 (09:13→23:50)
[2022-05-04] MEDS: PANTOPRAZOLE 40 MG/VIAL IVP SCH ×2 (09:13→19:56)
[2022-05-04 12:00] VITALS: BP 140/58
[2022-05-04] MEDS: DEXTROSE 5%-WATER 1,000 ML IV SCH (13:01)
[2022-05-04 16:00] VITALS: BP 136/97
[2022-05-04 20:00] VITALS: BP 108/65
[2022-05-04] MEDS ORDERED: [UNRECOGNIZED DRUG - NUTRITION] IV ONE (20:00)
[2022-05-05] VITALS: BP 112/73
[2022-05-05] MEDS: INSULIN HUMULIN R 100 UNIT/ML 3ML SQ SCH ×4 (01:44→18:43)
[2022-05-05] MEDS ORDERED: INSULIN HUMULIN R 100 UNIT/ML 3ML IV ONE (03:35)
[2022-05-05 04:00] VITALS: BP 105/55
[2022-05-05 07:30] VITALS: BP 98/59
[2022-05-05 08:30] LABS: CREATININE 3.1 mg/dL (0.5-1.5); POTASSIUM 3.4 mmol/L (3.5-5.1)
[2022-05-05] MEDS: Vitamin B Complex/Vit C/Folic Acid PO SCH (09:00)
[2022-05-05 09:17] LABS: MAGNESIUM 2.4 mg/dL (1.80-2.40)
[2022-05-05] MEDS: PANTOPRAZOLE 40 MG/VIAL IVP SCH ×2 (09:17→20:32)
[2022-05-05] MEDS: THIAMINE HCL 100 MG/ML 2ML VIAL IVP SCH (09:17)
[2022-05-05] MEDS: DEXTROSE 5%-WATER 1,000 ML IV SCH ×2 (09:47→16:31)
[2022-05-05] MEDS: 0.9%NACL 10ML VIAL IV SCH ×2 (09:47→20:32)
[2022-05-05] MEDS: FAT EMULSIONS 20% 250ML 250 ML IV SCH (11:17)
[2022-05-05] MEDS: HEPARIN 5,000 UNIT VIAL SQ SCH ×2 (11:21→22:35)
[2022-05-05 11:30] VITALS: BP 109/62
[2022-05-05] MEDS: CEFEPIME HCL 1 GM VIAL IVP SCH (12:25)
[2022-05-05] MEDS: LINEZOLID 600 MG/ISO-OSM 300 ML IV SCH (12:25)
[2022-05-05] MEDS ORDERED: INSULIN GLARGINE 100 UNITS/ML 10 ML VIAL SQ ONE (12:30)
[2022-05-05 13:18] LABS: CHOLESTEROL 98 mg/dL (<200); HDL CHOLESTEROL 30 mg/dL (29-71); LDL DIRECT 47 mg/dL (0-99); TRIGLYCERIDES 151 mg/dL (30-200)
[2022-05-05 15:30] VITALS: BP 111/58
[2022-05-05] MEDS ORDERED: M.V.I. IV [ADULT] 10 ML in CLINIMIX-E 5%AA /D15%W 2000ML 2,000 ML IV SCH (19:00)
[2022-05-05 20:00] VITALS: BP 109/63
[2022-05-05] MEDS ORDERED: INSULIN GLARGINE 100 UNITS/ML 10 ML VIAL SQ SCH (21:00)
[2022-05-05] MEDS ORDERED: BISACODYL 10 MG SUPP.RECT RC ONE (21:00)
[2022-05-05] MEDS: ONDANSETRON 4MG INJ IVP PRN (22:07)
[2022-05-06] VITALS: BP 100/55
[2022-05-06] MEDS: LINEZOLID 600 MG/ISO-OSM 300 ML IV SCH ×2 (00:10→11:33)
[2022-05-06] MEDS: CEFEPIME HCL 1 GM VIAL IVP SCH ×2 (00:11→11:33)
[2022-05-06] MEDS: INSULIN HUMULIN R 100 UNIT/ML 3ML SQ SCH ×4 (01:08→18:51)
[2022-05-06 04:00] VITALS: BP 101/53
[2022-05-06 05:42] LABS: BASOPHILS % (AUTO) 0.2 % (0.0-5.0); EOSINOPHILS % (AUTO) 0.5 % (0.0-8.0); HEMATOCRIT 30.8 % (42-54); LYMPHOCYTES % (AUTO) 9.9 % (21.0-51.0); MEAN CORPUSCULAR HEMOGLOBIN 26.8 pg (27.0-33.0); MEAN CORPUSCULAR HGB CONC 31.2 g/dL (32.0-36.0); MONOCYTES % (AUTO) 4.9 % (3.0-13.0); NEUTROPHILS % (AUTO) 82.5 % (40.0-77.0); PLATELET COUNT (AUTO) 165 K/uL (130-400); RED BLOOD CELL COUNT(AUTO) 3.58 MIL/uL (4.50-6.20); RED CELL DISTRIBUTION WIDTH 15.4 % (11.0-15.5); WHITE BLOOD COUNT (AUTO) 9.6 K/uL (4.8-10.8)
[2022-05-06 06:08] LABS: CREATININE 3.1 mg/dL (0.5-1.5); MAGNESIUM 2.3 mg/dL (1.80-2.40); PHOSPHORUS 4.3 mg/dL (2.5-4.9); POTASSIUM 3.7 mmol/L (3.5-5.1)
[2022-05-06 07:20] VITALS: BP 95/54
[2022-05-06] MEDS: PANTOPRAZOLE 40 MG/VIAL IVP SCH ×2 (09:04→21:41)
[2022-05-06] MEDS: Vitamin B Complex/Vit C/Folic Acid PO SCH (09:04)
[2022-05-06] MEDS: 0.9%NACL 10ML VIAL IV SCH ×2 (09:04→21:41)
[2022-05-06] MEDS: THIAMINE HCL 100 MG/ML 2ML VIAL IVP SCH (09:04)
[2022-05-06] MEDS: HEPARIN 5,000 UNIT VIAL SQ SCH ×2 (09:12→21:40)
[2022-05-06] MEDS ORDERED: SODIUM CHLORIDE 7% INHALATION 4 ML VIAL.NEB IH ONE ×3 (09:47→18:53)
[2022-05-06 11:00] VITALS: BP 96/66
[2022-05-06] MEDS: INSULIN GLARGINE 100 UNITS/ML 10 ML VIAL SQ SCH ×2 (11:28→21:39)
[2022-05-06] MEDS: DEXTROSE 5%-WATER 1,000 ML IV SCH ×2 (11:33→21:05)
[2022-05-06 15:00] VITALS: BP 122/101
[2022-05-06 20:00] VITALS: BP 134/79
[2022-05-06] MEDS ORDERED: M.V.I. IV [ADULT] 10 ML, MULTITRACE-4 ADULT 10ML VIAL 3 ML in CLINIMIX-E 5%AA /D15%W 2... IV SCH (20:30)
[2022-05-06] MEDS ORDERED: M.V.I. IV [ADULT] 10 ML in CLINIMIX-E 5%AA /D15%W 2000ML 2,000 ML IV SCH (20:30)
[2022-05-07] VITALS: BP 108/44
[2022-05-07] MEDS: LINEZOLID 600 MG/ISO-OSM 300 ML IV SCH ×2 (00:14→14:46)
[2022-05-07] MEDS: CEFEPIME HCL 1 GM VIAL IVP SCH ×3 (00:14→23:30)
[2022-05-07] MEDS: INSULIN HUMULIN R 100 UNIT/ML 3ML SQ SCH ×4 (01:07→23:29)
[2022-05-07 02:03] LABS: PROTEIN,URINE RANDOM 103.8 mg/dL (0-11.9)
[2022-05-07 04:00] VITALS: BP 115/60
[2022-05-07 04:26] LABS: BASOPHILS % (AUTO) 0.3 % (0.0-5.0); EOSINOPHILS % (AUTO) 0.9 % (0.0-8.0); HEMATOCRIT 29.4 % (42-54); LYMPHOCYTES % (AUTO) 10.1 % (21.0-51.0); MEAN CORPUSCULAR HEMOGLOBIN 26.7 pg (27.0-33.0); MEAN CORPUSCULAR HGB CONC 31.3 g/dL (32.0-36.0); MEAN CORPUSCULAR VOLUME 85.2 fL (79-99); MONOCYTES % (AUTO) 5.1 % (3.0-13.0); NEUTROPHILS % (AUTO) 80.5 % (40.0-77.0); PLATELET COUNT (AUTO) 173 K/uL (130-400); RED BLOOD CELL COUNT(AUTO) 3.45 MIL/uL (4.50-6.20); RED CELL DISTRIBUTION WIDTH 15.7 % (11.0-15.5); WHITE BLOOD COUNT (AUTO) 10.1 K/uL (4.8-10.8)
[2022-05-07 04:41] LABS: CREATININE 3.2 mg/dL (0.5-1.5); MAGNESIUM 2.2 mg/dL (1.80-2.40); PHOSPHORUS 4.9 mg/dL (2.5-4.9); POTASSIUM 3.7 mmol/L (3.5-5.1)
[2022-05-07 08:26] VITALS: BP 104/59
[2022-05-07] MEDS: Vitamin B Complex/Vit C/Folic Acid PO SCH (09:00)
[2022-05-07] MEDS: INSULIN GLARGINE 100 UNITS/ML 10 ML VIAL SQ SCH ×2 (09:00→21:00)
[2022-05-07] MEDS: 0.9%NACL 10ML VIAL IV SCH ×2 (10:06→21:00)
[2022-05-07] MEDS: PANTOPRAZOLE 40 MG/VIAL IVP SCH ×2 (10:06→21:15)
[2022-05-07] MEDS: THIAMINE HCL 100 MG/ML 2ML VIAL IVP SCH (10:06)
[2022-05-07] MEDS: DEXTROSE 5%-WATER 1,000 ML IV SCH ×2 (10:08→17:05)
[2022-05-07 13:16] VITALS: BP 74/40
[2022-05-07] MEDS: HEPARIN 5,000 UNIT VIAL SQ SCH ×2 (14:47→14:49)
[2022-05-07 16:59] VITALS: BP 111/61
[2022-05-07 20:52] VITALS: BP 106/56
[2022-05-07] MEDS: PROMETHAZINE HCL 25 MG/ML 1ML AMPULE IM PRN (21:40)
[2022-05-08 00:01] VITALS: BP 97/57
[2022-05-08] MEDS: LINEZOLID 600 MG/ISO-OSM 300 ML IV SCH (00:03)
[2022-05-08] MEDS: DEXTROSE 5%-WATER 1,000 ML IV SCH (04:46)
[2022-05-08] MEDS: INSULIN HUMULIN R 100 UNIT/ML 3ML SQ SCH (06:00)
[2022-05-08 08:06] VITALS: BP 119/65
== END 2022-05-08 10:31 | disposition hospice, home (50) | DRG 432 ==
LOC: EDH 09:14 → EDHIP 12:38 → 2DH 22:32 → 3AH 04-28 16:35 → 4DH 04-30 20:05
PROVIDERS: ADMIT Internal Medicine; ATTEND Internal Medicine
PROC: 0W9G3ZZ Drainage of Peritoneal Cavity, Percutaneous Approach (ICD-10-PCS; 2022-04-22)
PROC: 0D9670Z Drainage of Stomach with Drainage Device, Via Natural or Artificial Opening (ICD-10-PCS; 2022-04-22)
PROC: 0DBU4ZX Excision of Omentum, Percutaneous Endoscopic Approach, Diagnostic (ICD-10-PCS; 2022-04-30)
PROC: 02HV33Z Insertion of Infusion Device into Superior Vena Cava, Percutaneous Approach (ICD-10-PCS; principal; 2022-05-03)
DX: K74.60 Unspecified cirrhosis of liver (principal); E43 Unspecified severe protein-calorie malnutrition; J18.9 Pneumonia, unspecified organism; J90 Pleural effusion, not elsewhere classified; E87.0 Hyperosmolality and hypernatremia; N17.9 Acute kidney failure, unspecified; C22.9 Malignant neoplasm of liver, not specified as primary or secondary; Z20.822 Contact with and (suspected) exposure to COVID-19; R19.09 Other intra-abdominal and pelvic swelling, mass and lump; K66.0 Peritoneal adhesions (postprocedural) (postinfection); E87.5 Hyperkalemia; E87.6 Hypokalemia; E86.0 Dehydration; D63.1 Anemia in chronic kidney disease; E11.22 Type 2 diabetes mellitus with diabetic chronic kidney disease; E78.5 Hyperlipidemia, unspecified; I12.9 Hypertensive chronic kidney disease with stage 1 through stage 4 chronic kidney disease, or unspecified chronic kidney disease; R62.7 Adult failure to thrive; N18.9 Chronic kidney disease, unspecified; N40.1 Benign prostatic hyperplasia with lower urinary tract symptoms; K44.9 Diaphragmatic hernia without obstruction or gangrene; K21.9 Gastro-esophageal reflux disease without esophagitis; E88.09 Other disorders of plasma-protein metabolism, not elsewhere classified; Z85.05 Personal history of malignant neoplasm of liver; Z92.21 Personal history of antineoplastic chemotherapy; Z90.79 Acquired absence of other genital organ(s); Z90.49 Acquired absence of other specified parts of digestive tract; Z87.891 Personal history of nicotine dependence; Z79.899 Other long term (current) drug therapy; Z79.84 Long term (current) use of oral hypoglycemic drugs; Z68.22 Body mass index [BMI] 22.0-22.9, adult
CPT/HCPCS: 36415; 49083; 70450; 71045; 74018; 74176; 74240; 76770; 80048; 80053; 80061; 81001; 82105; 82570; 82948; 83036; 83690; 83735; 84100; 84132; 84145; 84156; 84157; 84300; 84550; 85025; 85027; 85610; 85730; 86316; 87040; 87071; 87077; 87088; 87186; 87205; 87635; 87804; 89051; 93005; 94640; 97039; C1729; C1894; C9113; C9803; G0378; J0330; J0690; J0692; J1100; J1644; J1815; J2001; J2020; J2250; J2370; J2405; J2543; J2550; J2704; J2710; J3010; J3411; J3480; J3490; J7030; J7040; J7042; J7070; P9046; P9047; Q9963